=== PATIENT | female | born 1995 | race Caucasian/White ===

== ENCOUNTER 2017-08-31 08:00 | Outpatient (CLI) | payer BC | END 2017-08-31 08:01 | LOC: LAB.R 08:00 | PROVIDERS: ATTEND Registered Nurse | DX: O09.01 Supervision of pregnancy with history of infertility, first trimester (principal) | CPT/HCPCS: 87086 ==

== ENCOUNTER 2017-09-03 08:00 | Outpatient (CLI) | payer BC | END 2017-09-03 08:01 | disposition home or self-care (01) | LOC: LAB.N 08:00 | PROVIDERS: ATTEND Registered Nurse | DX: O09.01 Supervision of pregnancy with history of infertility, first trimester (principal) | CPT/HCPCS: 36415; 81025; 84702 ==

== ENCOUNTER 2018-09-14 09:07 | Outpatient (CLI) | payer BC ==
--- NOTE | 2018-09-15 18:13 | Ultrasound Report ---
Reason: TEST POSITIVE Procedure Date: 09/14/2018 Accession Number: [id number] / [id number] Procedure: US - OB First Trimester CPT Code: FULL RESULT: EXAM: FIRST TRIMESTER OBSTETRIC ULTRASOUND (Less than 11 weeks) EXAM DATE: 09/14/2018 10:00 AM. CLINICAL HISTORY: Positive test. LMP: 07/29/2018. COMPARISONS: None. TECHNIQUE: Transabdominal and transvaginal ultrasound examination with static image and cine loop documentation. CLINICAL DATES: EGA 6 weeks 5 days with HALEIGH 05/05/2019 based on LMP 07/29/2018. ASSESSMENT: Gestational Sac: Single intrauterine. Mean gestational sac diameter: 17 mm = 6 weeks 0 days. Embryo: Not seen. Cardiac activity: Not seen. Yolk sac: 3 mm. Amniotic fluid: Not accurately assessed at this gestational age. Early placenta: Not visible at this gestational age. Other: No perigestational fluid collection demonstrated. MATERNAL STRUCTURES: Uterus: Anteverted. Globular, heterogeneous area in the anterior fundal region measuring approximately 4 x 3 x 2 cm, possibly representing ill-defined fibroid versus focal adenomyosis. Cervix: Closed. Small nabothian cysts noted. Right Ovary/Adnexa: The ovary measures 2.9 x 1.8 x 2.5 cm, volume 6.7 cc. Contains normal follicles and a possible corpus luteum cyst measuring 0.8 cm. Left Ovary/Adnexa: The ovary measures 3.8 x 1.6 x 3.3 cm, volume 10.5 cc. Contains normal follicles. Free Fluid: None. Other: None. IMPRESSION: of uncertain viability. Intrauterine gestational sac containing a yolk sac with size corresponding to gestational age 6 weeks 0 days. No pole or cardiac activity is seen at this time. Recommend follow-up ultrasound in 7-10 days to assess viability. RADIA ADDENDUM: 09/15/18 19:12 Additional finding of small volume anechoic/simple free fluid in the posterior cul-de-sac.
== END 2018-09-14 09:08 | disposition home or self-care (01) ==
LOC: DI 09:07
PROVIDERS: ATTEND Nurse Practitioner Obstetrics & Gynecology
DX: Z32.01 Encounter for pregnancy test, result positive (principal)
CPT/HCPCS: 76801

== ENCOUNTER 2018-09-28 08:07 | Outpatient (CLI) | payer BC ==
--- NOTE | 2018-09-29 12:57 | Ultrasound Report ---
Reason: UNCERTAIN VIABILITY OF Procedure Date: 09/28/2018 Accession Number: [id number] / [id number] Procedure: US - OB First Trimester CPT Code: FULL RESULT: EXAM: FIRST TRIMESTER OBSTETRIC ULTRASOUND (Less than 11 weeks) EXAM DATE: 09/28/2018 09:20 AM. CLINICAL HISTORY: Uncertain viability of . LMP: 07/29/2018. COMPARISONS: None. TECHNIQUE: Transabdominal and transvaginal ultrasound examination with static image documentation. CLINICAL DATES: EGA 8 weeks 5 days with HALEIGH 05/05/2019 based on LMP. ASSESSMENT: Gestational Sac: Single intrauterine. Embryo: CRL (crown-rump length) 11.9 mm = 7 weeks 3 days. Cardiac activity: 144 beats per minute. Yolk sac: 4 mm. Amniotic fluid: Not accurately assessed at this gestational age. Early placenta: Not visible at this gestational age. Other: 2 perigestational hemorrhages are noted. Anteriorly, the perigestational image measures 1.8 x 1.2 x 0.7 cm. Posteriorly, the collection measures 2.2 x 0.4 x 0.7 cm. MATERNAL STRUCTURES: Uterus: Anteverted. Unremarkable. Cervix: Closed. Right Ovary/Adnexa: The ovary measures 2.9 x 1.1 x 2.3 cm, volume 3.8 cc. Unremarkable. Left Ovary/Adnexa: The ovary measures 3.8 x 2.1 x 2.6 cm, volume 16.8 cc. Hypoechoic. 1.8 x 1.1 x 1.6 cm left ovarian cyst. Free Fluid: None. Other: None. IMPRESSION: 1. Single viable intrauterine at EGA 7 weeks 3 days with HALEIGH 05/14/2019 based on crown-rump length, which is discordant with clinical dates. 2. Assigned dating is HALEIGH 05/14/2019 based on current ultrasound. 3. Small perigestational hemorrhages as above. 4. 1.8 cm hypoechoic left ovarian cyst. Otherwise, both ovaries and adnexa are normal. RADIA
== END 2018-09-28 08:08 | disposition home or self-care (01) ==
LOC: DI 08:07
PROVIDERS: ATTEND Nurse Practitioner Obstetrics & Gynecology
DX: O34.81 Maternal care for other abnormalities of pelvic organs, first trimester (principal); N83.202 Unspecified ovarian cyst, left side; Z3A.01 Less than 8 weeks gestation of pregnancy
CPT/HCPCS: 76801

== ENCOUNTER 2018-10-08 08:00 | Outpatient (CLI) | payer BC ==
[2018-10-08 15:03] LABS: MUDS CUTOFF CONCENTRATIONS CUTOFF CONC BELOW:
[2018-10-08 16:18] LABS: AMPHETAMINE SCREEN,URINE NEGATIVE (NEGATIVE); BENZODIAZEPINES SCREEN, URINE NEGATIVE (NEGATIVE); COCAINE SCREEN URINE NEGATIVE (NEGATIVE); METHADONE SCREEN, URINE NEGATIVE (NEGATIVE); METHAMPHETAMINES SCREEN, URINE NEGATIVE (NEGATIVE); OPIATE SCREEN, URINE NEGATIVE (NEGATIVE); OXYCODONE SCREEN, URINE NEGATIVE (NEGATIVE); PROPOXYPHENE SCREEN, URINE NEGATIVE (NEGATIVE); TRICYCLIC ANTIDEPRESSANT,URINE NEGATIVE (NEGATIVE)
== END 2018-10-08 23:59 | disposition home or self-care (01) ==
LOC: LAB.R 08:00
PROVIDERS: ATTEND Nurse Practitioner Obstetrics & Gynecology
DX: Z11.3 Encounter for screening for infections with a predominantly sexual mode of transmission (principal)
CPT/HCPCS: 80306; 87491; 87591

== ENCOUNTER 2018-10-08 10:20 | Outpatient (CLI) | payer BC ==
[2018-10-08 11:00] LABS: BASOPHILS # (AUTO) 0.1 10^3/uL (0.0-0.1); BASOPHILS % (AUTO) 1.4 %; EOSINOPHILS % (AUTO) 0.6 %; HGB - HEMOGLOBIN 13.4 g/dL (12.0-16.0); LYMPHOCYTES # (AUTO) 1.3 10^3/uL (1.5-3.5); LYMPHOCYTES % (AUTO) 17.3 %; MEAN CORPUSCULAR HGB CONC 35.2 g/dL (32.0-36.0); MEAN CORPUSCULAR VOLUME 82.3 fL (81.0-99.0); MEAN PLATELET VOLUME 9.8 fL (7.9-10.8); MONOCYTES # (AUTO) 0.4 10^3/uL (0.0-1.0); MONOCYTES % (AUTO) 5.8 %; NEUTROPHILS # (AUTO) 5.7 10^3/uL (1.5-6.6); NEUTROPHILS % (AUTO) 74.9 %; PLT - PLATELET COUNT 221 10^3/uL (130-450); RED BLOOD COUNT 4.61 10^6/uL (4.20-5.40); RED CELL DISTRIBUTION WIDTH 14.7 % (12.0-15.0); WHITE BLOOD COUNT 7.6 x10^3/uL (4.8-10.8)
[2018-10-08 11:16] LABS: BILIRUBIN,URINE NEGATIVE (NEGATIVE); GLUCOSE, URINE (UA) NEGATIVE (NEGATIVE); KETONES,URINE (UA) NEGATIVE (NEGATIVE); LEUKOCYTE ESTERASE, URINE NEGATIVE (NEGATIVE); NITRITE,URINE NEGATIVE (NEGATIVE); OCCULT BLOOD,URINE NEGATIVE (NEGATIVE); PROTEIN,URINE NEGATIVE (NEGATIVE); UROBILINOGEN,URINE 0.2 (NORMAL) E.U./dL (NORMAL)
[2018-10-08 11:18] LABS: CLARITY,URINE CLEAR (CLEAR)
[2018-10-08 11:45] LABS: BACTERIA,URINE Few /HPF (None Seen); RBC,URINE 0-5 /HPF (0-5); SQUAMOUS EPITHELIAL CELL,UR MOD Squamous (<= Few)
[2018-10-09 13:26] LABS: HEPATITIS B SURFACE ANTIGEN NON-REACTIVE (NON-REACTIVE); HEPATITIS C ANTIBODY NON-REACTIVE (NON-REACTIVE)
[2018-10-09 14:37] LABS: HIV AG/AB 4TH GEN NON-REACTIVE (NON-REACTIVE)
== END 2018-10-08 10:21 | disposition home or self-care (01) ==
LOC: LAB 10:20
PROVIDERS: ATTEND Nurse Practitioner Obstetrics & Gynecology
DX: Z36.9 Encounter for antenatal screening, unspecified (principal); Z11.3 Encounter for screening for infections with a predominantly sexual mode of transmission
CPT/HCPCS: 36415; 80306; 81001; 81599; 85025; 86592; 86762; 86803; 86850; 86900; 86901; 87086; 87340; 87389; 87491; 87591

== ENCOUNTER 2018-11-13 15:56 | Emergency (ER) | payer BC ==
[2018-11-13 16:34] LABS: BILIRUBIN,URINE NEGATIVE (NEGATIVE); GLUCOSE, URINE (UA) NEGATIVE (NEGATIVE); KETONES,URINE (UA) NEGATIVE (NEGATIVE); LEUKOCYTE ESTERASE, URINE TRACE (NEGATIVE); NITRITE,URINE NEGATIVE (NEGATIVE); OCCULT BLOOD,URINE LARGE (NEGATIVE); PH,URINE 6.5 PH (5.0-7.5); PROTEIN,URINE NEGATIVE (NEGATIVE); UROBILINOGEN,URINE 0.2 (NORMAL) E.U./dL (NORMAL)
[2018-11-13 16:37] LABS: BASOPHILS % (AUTO) 0.5 %; EOSINOPHILS % (AUTO) 0.5 %; HGB - HEMOGLOBIN 13.4 g/dL (12.0-16.0); LYMPHOCYTES # (AUTO) 1.5 10^3/uL (1.5-3.5); LYMPHOCYTES % (AUTO) 17.6 %; MEAN CORPUSCULAR HEMOGLOBIN 28.9 pg (27.0-31.0); MEAN CORPUSCULAR HGB CONC 34.6 g/dL (32.0-36.0); MEAN CORPUSCULAR VOLUME 83.6 fL (81.0-99.0); MEAN PLATELET VOLUME 9.6 fL (7.9-10.8); MONOCYTES # (AUTO) 0.5 10^3/uL (0.0-1.0); MONOCYTES % (AUTO) 6.1 %; NEUTROPHILS # (AUTO) 6.3 10^3/uL (1.5-6.6); NEUTROPHILS % (AUTO) 75.3 %; PLT - PLATELET COUNT 244 10^3/uL (130-450); RED BLOOD COUNT 4.64 10^6/uL (4.20-5.40); WHITE BLOOD COUNT 8.3 x10^3/uL (4.8-10.8)
[2018-11-13 16:46] LABS: BACTERIA,URINE None Seen /HPF (None Seen); CLARITY,URINE HAZY (CLEAR); SQUAMOUS EPITHELIAL CELL,UR RARE Squamous (<= Few)
[2018-11-13 16:49] LABS: ALBUMIN 3.9 g/dL (3.2-5.5); ALBUMIN/GLOBULIN RATIO 1.1 (1.0-2.2); BILIRUBIN,TOTAL 0.4 mg/dL (0.2-1.0); CALCIUM 9.2 mg/dL (8.5-10.3); CREATININE 0.5 mg/dL (0.4-1.0); TOTAL PROTEIN 7.4 g/dL (6.7-8.2)
--- NOTE | 2018-11-13 17:53 | ED Physician Documentation ---
PD HPI FEMALE - Stated complaint Stated Complaint: FEMALE 14 WEEKS - Chief complaint Chief Complaint: Abd Pain - History obtained from History obtained from: Patient - History of Present Illness Timing - onset: How many hours ago (2) Timing - duration: Hours (2) Timing - details: Abrupt onset Pain level max: 0 Pain level max: 0 Associated symptoms: Vaginal bleeding. No: Fever, Chest/shoulder pain, Abdominal pain, Back pain, Pelvic pain, Vaginal pain, Vaginal discharge, Genital sore/lesion, Dysuria, Urinary frequency, Hematuria OB-FIELD AIDE History: G (1), P (0) Similar symptoms before: Has not had sx before Recently seen: Not recently seen Review of Systems Constitutional: denies: Fever, Chills Nose: denies: Rhinorrhea / runny nose, Congestion Throat: denies: Sore throat Cardiac: denies: Chest pain / pressure Respiratory: denies: Cough GI: denies: Nausea, Vomiting, Diarrhea : denies: Dysuria, Frequency, Hesitancy Skin: denies: Rash Musculoskeletal: denies: Neck pain, Back pain Neurologic: denies: Headache PD PAST MEDICAL HISTORY - Past Medical History Past Medical History: No - Past Surgical History Past Surgical History: No - Present Medications Home Medications: Ambulatory Orders Medication Instructions Recorded Confirmed Pnv No.95/Ferrous Fum/Folic AC 1 each PO DAILY 11/13/18 11/13/18 [ Caplet] - Allergies Allergies/Adverse Reactions: Allergies Allergy/AdvReac Type Severity Reaction Status Date / Time Penicillins Allergy Rash Verified 11/13/18 16:15 - Living Situation Living Situation: reports: With family Living Arrangement: reports: At home - Social History Does the pt smoke?: No Does the pt have substance abuse?: No - Family History Family history: reports: Non contributory PD ED PE NORMAL - Vitals Vital signs reviewed: Yes - General General: Alert and oriented X 3, No acute distress - HEENT HEENT: Moist mucous membranes - Neck Neck: Supple, no meningeal sign - Cardiac Cardiac: RRR - Respiratory Respiratory: No respiratory distress, Clear bilaterally - Abdomen Abdomen: Soft, Non tender, Non distended - Back Back: No CVA TTP - Derm Derm: Warm and dry - Extremities Extremities: No edema - Neuro Neuro: Alert and oriented X 3 - Psych Psych: Normal mood, Normal affect Results - Vitals Vitals: Vital Signs - 24 hr 11/13/18 11/13/18 16:12 18:09 Temperature 36.8 C Heart Rate 89 81 Respiratory 20 18 Rate Blood Pressure 119/79 115/78 O2 Saturation 100 100 Oxygen O2 Source Room air - Labs Labs: Laboratory Tests 11/13/18 11/13/18 11/13/18 16:20 16:27 16:27 WBC 8.3 RBC 4.64 Hgb 13.4 Hct 38.8 MCV 83.6 MCH 28.9 MCHC 34.6 RDW 14.0 Plt Count 244 MPV 9.6 Neut # (Auto) 6.3 Lymph # (Auto) 1.5 [place] # (Auto) 0.5 Eos # (Auto) 0.0 Baso # (Auto) 0.0 Absolute Nucleated RBC 0.00 Nucleated RBC % 0.0 Sodium 134 L Potassium 3.7 Chloride 101 Carbon Dioxide 22 Anion Gap 11.0 BUN 9 Creatinine 0.5 Estimated GFR (MDRD) 150 Glucose 91 Calcium 9.2 Total Bilirubin 0.4 AST 24 ALT 16 Alkaline Phosphatase 54 Total Protein 7.4 Albumin 3.9 Globulin 3.5 Albumin/Globulin Ratio 1.1 Lipase 39 HCG, Quant Urine Color YELLOW Urine Clarity HAZY Urine pH 6.5 Ur Specific [place] 1.015 Urine Protein NEGATIVE Urine Glucose (UA) NEGATIVE Urine Ketones NEGATIVE Urine Occult Blood LARGE H Urine Nitrite NEGATIVE Urine Bilirubin NEGATIVE Urine Urobilinogen 0.2 (NORMAL) Ur Leukocyte Esterase TRACE H Urine RBC 6-10 H Urine WBC 4-5 Ur Squamous Epith Cells RARE Squamous Urine Bacteria None Seen Ur Microscopic Review INDICATED Urine Culture Comments INDICATED 11/13/18 16:27 WBC RBC Hgb Hct MCV MCH MCHC RDW Plt Count MPV Neut # (Auto) Lymph # (Auto) [place] # (Auto) Eos # (Auto) Baso # (Auto) Absolute Nucleated RBC Nucleated RBC % Sodium Potassium Chloride Carbon Dioxide Anion Gap BUN Creatinine Estimated GFR (MDRD) Glucose Calcium Total Bilirubin AST ALT Alkaline Phosphatase Total Protein Albumin Globulin Albumin/Globulin Ratio Lipase HCG, Quant 90801.00 Urine Color Urine Clarity Urine pH Ur Specific [place] Urine Protein Urine Glucose (UA) Urine Ketones Urine Occult Blood Urine Nitrite Urine Bilirubin Urine Urobilinogen Ur Leukocyte Esterase Urine RBC Urine WBC Ur Squamous Epith Cells Urine Bacteria Ur Microscopic Review Urine Culture Comments - Rads (name of study) OB 14-week plus ultrasound Radiology: Prelim report reviewed, EMP read contemporaneously, See rad report (Gonzalez live intrauterine with gestational age 14 weeks 2 days based on today's exam. No ultrasound abnormalities identified to explain bleeding. 3. Normal early second trimester anatomy. No anatomic abnormalities are seen at this time. ) PD MEDICAL DECISION MAKING - ED course Complexity details: reviewed results, re-evaluated patient, considered differential, d/w patient, d/w family ED course: 23-year-old female with vaginal bleeding. She is . Blood type is O+. She states that the bleeding has nearly resolved now. No acute lab abnormalities. No acute findings on ultrasound. We will follow-up with OB for further care. Patient counseled regarding signs and symptoms for which I believe and urgent re-evaluation would be necessary. Patient with good understanding of and agreement to plan and is comfortable going home at this time This document was made in part using voice recognition software. While efforts are made to proofread this document, sound alike and grammatical errors may occur. Departure - Departure Disposition: 01 Home, Self Care Clinical Impression: Threatened affecting intrauterine Condition: Good Instructions: ED Miscarriage Poss Follow-Up: Saroj Shrestha MD [Primary Care Provider] - Within 1 week Comments: Follow-up with your OB within the next 3 to 7 days for repeat evaluation. Return if you worsen. Your ultrasound does not show any acute abnormalities tonight. Discharge Date/Time: 11/13/18 18:29
[2018-11-13 18:13] VITALS: BP 115/78
--- NOTE | 2018-11-13 18:44 | Ultrasound Report ---
Reason: 14 weeks ega, vb Procedure Date: 11/13/2018 Accession Number: [id number] / [id number] Procedure: US - OB 14+ Weeks CPT Code: FULL RESULT: EXAM: LIMITED OBSTETRICAL ULTRASOUND EARLY SECOND TRIMESTER EXAM DATE: 11/13/2018 04:46 PM. CLINICAL HISTORY: Vaginal bleeding since yesterday. COMPARISON: OB FIRST TRIMESTER 09/28/2018 8:27 AM. TECHNIQUE: Real-time sonographic evaluation of the fetus performed by the theatrical scenic designer. Multiple customer relations representative static images were saved for review. DATING: Established EGA 15 weeks 2 days with HALEIGH 05/05/2019 based on LMP of 07/29/2018. EGA 14 weeks 0 days with HALEIGH 05/14/2019 based on initial ultrasound. EGA 14 weeks 2 days with HALEIGH 05/12/2019 based on the current ultrasound. GENERAL EVALUATION Gonzalez . Cardiac activity: 157 bpm. movement: Visualized. Presentation: Breech. Placenta: Anterior position. No evidence for previa. Amniotic fluid: Subjectively normal. MVP 3.9 cm. BIOMETRY Bi-Parietal Diameter (BPD): 2.71 cm, 14 weeks 5 days Head Circumference (HC): 9.93 cm, 14 weeks 4 days Abdominal Circumference (AC): 7.79 cm, 14 weeks 1 day Femur Length (FL): 1.33 cm, 13 weeks 6 days Estimated Weight: 91 g. ANATOMY Within the limits of early second trimester ultrasound, no anatomic abnormality is detected. The profile/nasal bone, visualized intracranial structures, anterior abdominal wall, cord insert region, stomach, and bladder are visualized and appear normal for gestational age. Cardiac situs is normal. Both upper and lower extremities are visualized. MATERNAL STRUCTURES Uterus: Unremarkable. Cervix: Long and closed. Right ovary/adnexa: Unremarkable. Left ovary/adnexa: Unremarkable. Free fluid: None. IMPRESSION: 1. Gonzalez live intrauterine with gestational age 14 weeks 2 days based on today's exam. 2. No ultrasound abnormalities identified to explain bleeding. 3. Normal early second trimester anatomy. No anatomic abnormalities are seen at this time. Note: Detailed anatomic survey at 18-22 weeks is recommended for all fetuses evaluated prior to 18 weeks, as some structural abnormalities may be inapparent at earlier gestational ages. RADIA
== END 2018-11-13 18:29 | disposition home or self-care (01) ==
LOC: ED 15:56
DX: O20.0 Threatened abortion (principal); Z3A.14 14 weeks gestation of pregnancy
CPT/HCPCS: 36415; 76805; 80053; 81001; 81003; 83690; 84702; 85025; 86900; 86901; 87086; 99283

== ENCOUNTER 2018-11-19 09:02 | Outpatient (CLI) | payer BC | END 2018-11-19 09:03 | disposition home or self-care (01) | LOC: LAB 09:02 | PROVIDERS: ATTEND Registered Nurse | DX: Z34.90 Encounter for supervision of normal pregnancy, unspecified, unspecified trimester (principal); Z36.9 Encounter for antenatal screening, unspecified | CPT/HCPCS: 36415; 81599 ==

== ENCOUNTER 2018-12-23 07:16 | Outpatient (CLI) | payer BC ==
--- NOTE | 2018-12-23 09:43 | Ultrasound Report ---
Reason: SUPERVISION OF NORMAL Procedure Date: 12/23/2018 Accession Number: [id number] / [id number] Procedure: US - OB Detailed Eval CPT Code: FULL RESULT: EXAM: COMPLETE OBSTETRICAL ULTRASOUND EXAM DATE: 12/23/2018 08:20 AM. CLINICAL HISTORY: anatomic survey. COMPARISON: None. TECHNIQUE: Real-time sonographic evaluation of the fetus performed by the belt lacer. Multiple risk control field representative static images were saved for review. Additional transvaginal imaging to more accurately evaluate cervical length/placental position/etc. DATING: Established EGA unknown with HALEIGH unknown based on source of assigned dating. EGA 19 weeks 5 days with HALEIGH 05/14/2019 based on current ultrasound. GENERAL EVALUATION Gonzalez . Cardiac activity: 148 bpm. movement: Visualized. Presentation: Various Placenta: Anterior position. No evidence for previa. Umbilical cord: 3 vessel cord. Central placental cord origin. Amniotic fluid: Subjectively normal. NOMAN 14.4 cm. BIOMETRY Bi-Parietal Diameter (BPD): 4.7 cm, 20 weeks 2 days Head Circumference (HC): 17.3 cm, 19 weeks 6 days Abdominal Circumference (AC): 14.7 cm, 20 weeks 0 days Femur Length (FL): 3.0 cm, 19 weeks 3 days Estimated Weight: 310 g, 47 percentile for 19 weeks 5 days. ANATOMY The intracranial structures, profile, face/nose/lips, spine, 4 chamber heart and outflow tracts, stomach, abdominal wall and cord insertion, diaphragm, kidneys, bladder, and extremities were visualized and demonstrate no abnormality. MATERNAL STRUCTURES Uterus: Unremarkable. Cervix: Long and closed. Transabdominal length 4.1 cm. Right ovary/adnexa: Unremarkable. Left ovary/adnexa: Unremarkable. Free fluid: None. IMPRESSION: 1. Gonzalez live intrauterine with gestational age 19 weeks 5 days based on ultrasound. 2. Estimated weight is within expected limits for assigned dating. 3. Normal anatomic survey. No anatomic abnormalities are detected at this time. RADIA
== END 2018-12-23 07:17 | disposition home or self-care (01) ==
LOC: DI 07:16
PROVIDERS: ATTEND Registered Nurse
DX: Z34.90 Encounter for supervision of normal pregnancy, unspecified, unspecified trimester (principal)
CPT/HCPCS: 76811

== ENCOUNTER 2019-02-07 16:19 | Outpatient (CLI) | payer BC | END 2019-02-07 16:20 | disposition critical access hospital (66) | LOC: EMS 16:19 | PROVIDERS: ATTEND Surgery | DX: R45.851 Suicidal ideations (principal) | CPT/HCPCS: A0425; A0429 ==

== ENCOUNTER 2019-02-10 08:00 | Outpatient (CLI) | payer BC ==
[2019-02-10 20:43] LABS: CANDIDA GROUP DNA NEGATIVE (NEGATIVE); CANDIDA KRUSEI DNA NEGATIVE (NEGATIVE); TRICHOMONAS VAGINALIS DNA NEGATIVE (NEGATIVE)
== END 2019-02-10 08:01 | disposition home or self-care (01) ==
LOC: LAB.R 08:00
PROVIDERS: ATTEND Obstetrics & Gynecology
DX: N89.8 Other specified noninflammatory disorders of vagina (principal)
CPT/HCPCS: 87661; 87801

== ENCOUNTER 2019-03-10 11:10 | Outpatient (CLI) | payer BC ==
[2019-03-10 12:39] LABS: HGB - HEMOGLOBIN 13.1 g/dL (12.0-16.0); MEAN CORPUSCULAR HEMOGLOBIN 29.9 pg (27.0-31.0); MEAN CORPUSCULAR HGB CONC 35.3 g/dL (32.0-36.0); MEAN CORPUSCULAR VOLUME 84.7 fL (81.0-99.0); MEAN PLATELET VOLUME 11.2 fL (7.9-10.8); RED BLOOD COUNT 4.38 10^6/uL (4.20-5.40); RED CELL DISTRIBUTION WIDTH 14.5 % (12.0-15.0); WHITE BLOOD COUNT 7.3 x10^3/uL (4.8-10.8)
== END 2019-03-10 11:11 | disposition home or self-care (01) ==
LOC: LAB 11:10
PROVIDERS: ATTEND Obstetrics & Gynecology
DX: Z36.89 Encounter for other specified antenatal screening (principal)
CPT/HCPCS: 36415; 82950; 85027; 86850

== ENCOUNTER 2019-04-20 00:08 | Inpatient (IN) | payer BC ==
[2019-04-20] MEDS ORDERED: ceFAZolin 2 GM in SODIUM CHLORIDE 0.9% 100ML 100 ML IV ONE (00:45)
[2019-04-20] MEDS ORDERED: SODIUM CHLORIDE FLUSH 0.9% 10 ML SYRINGE IVP PRN (00:45)
[2019-04-20] MEDS ORDERED: LACTATED RINGERS 1,000 ML IV ONE (00:56)
[2019-04-20] MEDS ORDERED: LACTATED RINGERS 1,000 ML IV SCH ×2 (01:00→14:00)
[2019-04-20] MEDS ORDERED: SODIUM CHLORIDE FLUSH 0.9% 10 ML SYRINGE ONE (01:02)
[2019-04-20 01:15] LABS: BASOPHILS % (AUTO) 0.3 %; EOSINOPHILS % (AUTO) 0.3 %; HGB - HEMOGLOBIN 12.7 g/dL (12.0-16.0); LYMPHOCYTES # (AUTO) 1.6 10^3/uL (1.5-3.5); MEAN CORPUSCULAR HGB CONC 34.8 g/dL (32.0-36.0); MEAN CORPUSCULAR VOLUME 83.3 fL (81.0-99.0); MEAN PLATELET VOLUME 12.1 fL (7.9-10.8); MONOCYTES # (AUTO) 0.7 10^3/uL (0.0-1.0); MONOCYTES % (AUTO) 8.2 %; NEUTROPHILS # (AUTO) 6.2 10^3/uL (1.5-6.6); NEUTROPHILS % (AUTO) 71.6 %; PLT - PLATELET COUNT 196 10^3/uL (130-450); RED BLOOD COUNT 4.38 10^6/uL (4.20-5.40); RED CELL DISTRIBUTION WIDTH 15.1 % (12.0-15.0); WHITE BLOOD COUNT 8.6 x10^3/uL (4.8-10.8)
[2019-04-20] MEDS: SODIUM CHLORIDE FLUSH 0.9% 10 ML SYRINGE IVP SCH (01:17)
[2019-04-20] MEDS ORDERED: ROPIVACAINE 0.2% 200 MG/100 ML BAG EP ONE ×2 (01:27→09:47)
--- NOTE | 2019-04-20 01:46 | HISTORY & PHYSICAL EXAMINATION ---
Admit History - Visit Reason Visit Reason: Membranes rupture - : 1 Parity: 0 Care: positive: [facility] Risk/History: positive: Premature rupture membrane Complications This : positive: None, Other (GBS unknown) Smoking Status: Never smoker - Mother's Labs Mother's Blood Type: positive: O Mother's RH: positive: Positive GBS: positive: Other Rubella Status: positive: Immune - Other Maternal History Other Maternal History: Patient is a 24-year-old G2, P0 at 36 weeks 4days estimated gestational age with HALEIGH 05/14/19 admitted with PPROM. Patient reports passing large gush of fluid at home. Endorses painful contractions that started once admitted. No Vaginal bleeding. Endorses movements. has been complicated by depression with episodes of SI. Otherwise without complication. GBS is unknown. Denies HSV. Admitted with elevated blood pressures. To diastolic blood pressures have been in the severe range, but have not been more than 15 minutes apart. No headache/vision change/right upper quadrant pain. Desires epidural WILMA. Meds/Allgy - Home Medications Home Medications: Ambulatory Orders Medication Instructions Recorded Confirmed Pnv No.95/Ferrous Fum/Folic AC 1 each PO DAILY 11/13/18 11/13/18 [ Caplet] QUEtiapine [SEROquel] mg ORAL DAILY 02/08/19 - Allergies Allergies/Adverse Reactions: Allergies Allergy/AdvReac Type Severity Reaction Status Date / Time Penicillins Allergy Rash Verified 11/13/18 16:15 Review of Systems - Other Findings Other Findings: As per HPI, otherwise remaining systems are negative. Physical - Abdominal Exam Vital Signs: 136/99 76 Contraction Frequency (min/apart): Q1-2 min Contraction Intensity: positive: Moderate to strong - Monitoring Heart Rate Baseline: 135 Strip Review: positive: Category I - Presentation Presentation: positive: Vertex - Vaginal Exam Membranes: positive: Membranes ruptured Dilation (in cm): 6.5 Effacement (%): 100 Station: positive: 1 - Speculum Exam Speculum Exam Performed: positive: No - Other Notes Labor Progress Note/Additional Text: Patient is grossly ruptured with active passage of fluid. SVE was 6/complete/+1 at admission. Patient reported sensation of fecal urgency as well as severe pain. Repeat check within 1 hour was 6-7/ complete/+1. Plan for Labor - Plan For Labor I expect patient to be DC'd or transferred within 96 hours.: Yes Plan for Labor: 24-year-old G2, P0 at 36+4 weeks estimated gestational age here with PPROM. Labor/PPROM: -Frequent contractions. Expectant management at present -Pitocin for augmentation as indicated -Anticipate FWB: -GBS unknown. Cefazolin as per GBS prophylaxis protocol for pcn allergic patients -Category 1 tracing. See EFM. -Vertex -Growth has been appropriate -Pediatrics aware. Will have RT at delivery. -Betamethasone 12 mg IM x1 for anticipated late delivery. PAIN: -Epidural as desired -Nitrous oxide until epidural can be placed Elevated blood pressures: -Denies symptoms of PIH -PIH labs pending. Platelets 196 -Patient about to undergo epidural placement. If elevated blood pressures persist after epidural, will start IV hydralazine and magnesium In patient care
[2019-04-20] MEDS ORDERED: BETAMETHASONE 30 MG/5 ML VIAL IM ONE (01:47)
[2019-04-20] MEDS ORDERED: fentaNYL 100 MCG/2 ML VIAL ONE (01:52)
[2019-04-20 01:57] LABS: ALBUMIN 3.3 g/dL (3.2-5.5); BILIRUBIN,DIRECT 0.2 mg/dL (0.1-0.5); BILIRUBIN,TOTAL 0.9 mg/dL (0.2-1.0); CREATININE 0.7 mg/dL (0.4-1.0); TOTAL PROTEIN 7.1 g/dL (6.7-8.2)
--- NOTE | 2019-04-20 02:46 | ANESTHESIA ---
Pre-Anesthesia VS, & Labs - Diagnosis term - Procedure labor epidural Height 5 ft Body Mass Index 27.7 5-2, 151# - Is Patient ?: Yes - Lab Results Current Lab Results: Laboratory Tests 04/20/19 01:05: Creatinine 0.7, Estimated GFR (MDRD) 101, Total Bilirubin 0.9, Direct Bilirubin 0.2, AST 21, ALT 13, Alkaline Phosphatase 206 H, Total Protein 7.1, Albumin 3.3, Globulin 3.8 04/20/19 01:05: WBC 8.6, RBC 4.38, Hgb 12.7, Hct 36.5 L, MCV 83.3, MCH 29.0, MCHC 34.8, RDW 15.1 H, Plt Count 196, MPV 12.1 H, Neut # (Auto) 6.2, Lymph # (Auto) 1.6, [place] # (Auto) 0.7, Eos # (Auto) 0.0, Baso # (Auto) 0.0, Absolute Nucleated RBC 0.00, Nucleated RBC % 0.0 Fish Bones: 04/20/19 01:05 04/20/19 01:05 Home Medications and Allergies Active Medications Cefazolin Sodium 1 gm/ Sodium (Chloride) 100 mls @ 200 mls/hr IV Q8H [facility] Lactated Ringer's (Lr) 1,000 mls @ 150 mls/hr IV .[id number] [facility] Last Admin: 04/20/19 01:17 Dose: 150 mls/hr Sodium Chloride (Normal Saline Flush 0.9%) 10 ml IVP PRN PRN PRN Reason: NEEDED PER PROVIDER ORDERS Last Admin: 04/20/19 01:17 Dose: 10 ml Sodium Chloride (Normal Saline Flush 0.9%) 10 ml IVP 0100,0900,1700 [facility] Last Admin: 04/20/19 01:17 Dose: 10 ml Pnv No.95/Ferrous Fum/Folic AC [ Caplet] 1 each PO DAILY 11/13/18 QUEtiapine [SEROquel] mg ORAL DAILY 02/08/19 Allergies/Adverse Reactions: Allergies Allergy/AdvReac Type Severity Reaction Status Date / Time Penicillins Allergy Rash Verified 11/13/18 16:15 Anes History & Medical History - Anesthetic History Anesthesia Complications: reports: No previous complications Family history of Anesthesia Complications: Denies Family history of Malignant Hyperthermia: Denies - Medical History Cardiovascular: reports: None Pulmonary: reports: None Gastrointestinal: reports: GERD (hypertensive prior to epidural placement) Smoking Status: Never smoker - Obstetrical History : 1 Parity: 0 Events: positive: Premature rupture membrane Complications: positive: None Exam General: Alert Dental: WNL Mouth Openin Fingerbreadth Mallampati classification: II Respiratory: Lungs clear Cardiovascular: Regular rate, Normal S1, Normal S2, No murmurs Mental/Cognitive Status: Alert/Oriented X3, Normal for patient Cognitive Status: Within normal limits Plan Anesthesia Type: Epidural Consent for Procedure(s) Verified and Reviewed: Yes Code Status: Attempt Resuscitation ASA classification: 2-Mild systemic disease Is this case an emergency?: No
[2019-04-20] MEDS ORDERED: OXYTOCIN/DEXTROSE 5 % 30 UNIT/500 ML BAG IV ONE (03:59)
[2019-04-20 04:03] LABS: CREATININE,URINE 23.9 mg/dL
[2019-04-20 04:14] LABS: TOTAL PROTEIN,URINE TIMED < 6 mg/dL
[2019-04-20] MEDS: OXYTOCIN/DEXTROSE 5 % 30 UNIT/500 ML BAG IV SCH ×2 (05:50→13:05)
[2019-04-20] MEDS ORDERED: ceFAZolin 1 GM in SODIUM CHLORIDE 0.9% MINIBAG 100 ML IV SCH (09:00)
[2019-04-20] MEDS ORDERED: ONDANSETRON 4 MG/2 ML VIAL IVP PRN (09:44)
[2019-04-20] MEDS ORDERED: ROPIVACAINE 0.2% 200 MG/100 ML BAG EP PRN (09:44)
[2019-04-20] MEDS ORDERED: NALBUPHINE 10 MG/ML AMP IVP PRN (09:44)
[2019-04-20] MEDS ORDERED: diphenhydrAMINE INJ 50 MG/ML VIAL IVP PRN (09:44)
--- NOTE | 2019-04-20 10:07 | CONSULTATION NOTE ---
Consultation Report: Call to [phone] for air in epidural line. Lamoille volume not empty. Air in line identified. Epidural disconnected from patient and line flushed until air gone. Negative aspiration on epidural before reconnecting solution. Pt denies pain with contractions and is still able to feel pressure. VSS.
[2019-04-20] MEDS ORDERED: MINERAL OIL LIGHT 10 ML MC ONE (12:00)
[2019-04-20] MEDS ORDERED: miSOPROStol 200 MCG TABLET BC ONE (12:23)
[2019-04-20] MEDS ORDERED: HYDROCORTISONE 1% CREAM 28 GM TUBE PR PRN (13:01)
[2019-04-20] MEDS ORDERED: SIMETHICONE CHEW 80 MG TABLET PO PRN (13:01)
[2019-04-20] MEDS ORDERED: ONDANSETRON ODT 4 MG TABLET TL PRN (13:01)
--- NOTE | 2019-04-20 13:51 | DELIVERY NOTE ---
Delivery Note - Infant Delivery Method Infant Delivery Method: positive: Spontaneous vaginal delivery - Presentation Presentation: positive: Vertex - Nuchal Cord Nuchal Cord: positive: None - Amniotic Fluid Description Amniotic Fluid Description: positive: Clear, Other (terminal meconium) - Episiotomy Type Episiotomy Type: positive: Right mediolateral - Laceration Laceration: positive: 2nd degree - Suture Suture Type: positive: Vicryl Suture Size: positive: 3-0 - Delivery Outcome Delivery Outcome: positive: Livebirth - [place] sex: positive: Male - Cord Cord: positive: 3 vessels - Placenta Placenta: positive: Intact, Expressed - Estimated Blood Loss Estimated Blood Loss (in cc): 300 - Post Delivery Events Post Delivery Events: positive: Shoulder dystocia - Delivery Comments (Free Text/Narrative) Delivery Comments (Free Text/Narrative): STAGE I: Patient is a 24-year-old G2, P0 at 36 weeks 4days estimated gestational age with HALEIGH 05/14/19 admitted with PPROM. Patient reports passing large gush of fluid at home. Endorses painful contractions that started once admitted. Initial SVE was 6/complete/+1 She was started on cefazolin for unknown GBS status. Denies HSV. Administered betamethasone 12 mg IM x1 for anticipated late delivery. Received pitocin or augmentation, reaching a max dose of 8 mU/min. Epidural for pain management. Fetus was in OP position and was manually rotated to OA. There was a brief period of tachycardia lasting about 15 minutes that resolved with manual rotation of the fetus. Otherwise, category I tracing throughout Stage I. Complete dilation at 8:27 am. STAGE II: Pushed well for 3 hour and 40 minutes to deliver a viable male . Fetus crowned for extended period of time and risk of shoulder dystocia was recognized and reviewed with the team. Pediatrics and Respiratory therapy were notified and were on the labor deck on standby. Should dystocia sustained for 2 minutes and 10 seconds was relieved with a combination of McRobert's maneuver, attempt to deliver the posterior arm, Wood's screw maneuver, and maternal position change. Right shoulder was anterior and left shoulder was anterior. A small, right mediolateral episiotomy was performed to allow for better access to the posterior arm. Infant delivered at 12:08. Cord was cut x2 and he was handed off to the pediatric team for resuscitation. Blood gases were collected. Venous gases were 7.375/32.7/33.6/18.7/19.7/-5.4. Volume collected was insufficient for arterial gases. Apgars were 5/8. STAGE III: Placenta delivered at 12:18 with manual expression and gentle downward traction on the umbilical cord. It was examined and found to be intact. There was a large gush of blood after delivery. Uterus was mildly atonic. Bleeding and atony were relieved with pitocin, 600 mcg misoprostol BC, and bimanual massage. There was a small 2nd laceration as a result of the mediolateral episiotomy. It was repaired with 3-0 Vicryl in layers in the usual sterile fashion. ETA: GBS studies returned positive. Patient had been adequately treated cefazolin per prophylaxis protocol.
[2019-04-20] MEDS: ACETAMINOPHEN 500 MG TABLET PO SCH ×2 (14:11→21:40)
[2019-04-20] MEDS: IBUPROFEN 600 MG TABLET PO SCH ×2 (14:14→21:40)
[2019-04-20] MEDS: GENTAMICIN IV SCH (16:52)
[2019-04-20] MEDS: SODIUM CHLORIDE 0.9% IV SCH (16:52)
[2019-04-20] MEDS: CLINDAMYCIN 600 MG/50 ML 50 ML IV SCH (18:22)
[2019-04-20 18:57] LABS: TRICHOMONAS VAGINALIS DNA NEGATIVE (NEGATIVE)
[2019-04-20] MEDS: DOCUSATE SODIUM 100 MG CAPSULE PO PRN (21:40)
[2019-04-21] MEDS: CLINDAMYCIN 600 MG/50 ML 50 ML IV SCH ×3 (01:10→14:33)
[2019-04-21] MEDS: IBUPROFEN 600 MG TABLET PO SCH ×4 (04:39→20:15)
[2019-04-21] MEDS: ACETAMINOPHEN 500 MG TABLET PO SCH ×3 (06:07→22:26)
[2019-04-21] MEDS: SODIUM CHLORIDE FLUSH 0.9% 10 ML SYRINGE IVP SCH ×2 (08:07→14:34)
[2019-04-21] MEDS: DOCUSATE SODIUM 100 MG CAPSULE PO PRN ×2 (08:07→22:26)
[2019-04-21] MEDS ORDERED: PHENOL THROAT SPRAY 177 ML MM PRN (11:10)
[2019-04-21] MEDS ORDERED: oxyCODONE 5 MG TABLET PO PRN (11:11)
--- NOTE | 2019-04-21 11:16 | PROVIDER PROGRESS NOTE ---
Subjective - Prog Note Date Prog Note Date: 04/21/19 Prog Note Time: 11:10 - Subjective Pt reports feeling: Improved Subjective: Infant doing well. Pain not well managed on ibuprofen and tylenol. Patient did push for almost 4 hours and had a shoulder dystocia with maneuvering. Has a sore throat but has been afebrile since 1800 yesterday. Requests flu immunization. BF going well. Has been up and ambulating. Has voided and had a bowel movement. Objective - Vital Signs/Intake & Output Vital Signs: Vital Signs x48h Temp Pulse Resp BP Pulse Ox 04/21/19 08:00 98.2 F 80 18 95/54 L 100 04/21/19 04:38 98.5 F 83 16 106/67 100 Intake & Output: Intake & Output 04/18/19 04/19/19 04/20/19 04/21/19 23:59 23:59 23:59 23:59 Intake Total 2366.25 1600 Output Total 2000 Balance 365.25 1600 - Objective General Appearance: positive: No acute distress Respiratory: positive: No respiratory distress Cardiovascular: positive: Other (Reg rate) Abdomen: positive: Other (S&NT/ND. FF below umbi) Skin: positive: Color nml Extremities: positive: Non-tender, No pedal edema Neurologic/Psychiatric: positive: Oriented x3, Depressed mood/affect, Other (flat affect) - Lab Results Fish Bones: 04/20/19 01:05 04/20/19 01:05 Other Labs: Lab Results x24hrs 04/21/19 04/20/19 04/20/19 Range/Units 05:20 01:05 00:40 Last Dose Date 04/20/19 Last Dose Time 1800 Random Gentamicin 1.0 ug/mL Chlam trachomat DNA PCR NEGATIVE (NEGATIVE) N.gonorrhoeae DNA (PCR) NEGATIVE (NEGATIVE) Group B Strep (PCR) POSITIVE A (NEGATIVE) T. vaginalis (PCR) NEGATIVE (NEGATIVE) Assessment/Plan - Problem List (1) Vaginal delivery Impression: Has been afebrile since 18:00 on 04/20/19. -Cont abx until gentamicin dose at 18:00 and then discontinue unless febrile temps retrun -Influenza vaccine once afebrile for 24 hours -Chloroseptic for throat -Add oxycodone 5 mg po Q4H for breakthrough pain. Reviewed that narcotics should be used sparingly. Anticpate DC home tomorrow
[2019-04-21] MEDS: GENTAMICIN IV SCH (17:38)
[2019-04-21] MEDS: SODIUM CHLORIDE 0.9% IV SCH (17:38)
[2019-04-21] MEDS ORDERED: FLU VACC QS2019-20(6MOS UP)/PF 60 MCG/0.5 ML SYRINGE IM ONE (19:00)
[2019-04-22] MEDS: IBUPROFEN 600 MG TABLET PO SCH ×2 (04:10→07:50)
[2019-04-22] MEDS: ACETAMINOPHEN 500 MG TABLET PO SCH (06:32)
--- NOTE | 2019-04-22 09:58 | PROVIDER PROGRESS NOTE ---
Subjective - Prog Note Date Prog Note Date: 04/22/19 Prog Note Time: 09:56 - Subjective Subjective: Patient is doing very well today. She states her lochia is light. She is trying to breast-feed. It does appear that the may need to stay for mirta vated bilirubin. The patient would like to be discharged but to rooming in.She is ambulating well and tolerating diet well. She states her pain level is 0 today. Objective - Vital Signs/Intake & Output Vital Signs: Vital Signs x48h Temp Pulse Resp BP Pulse Ox 04/22/19 08:00 36.8 C 78 16 100 04/22/19 04:46 36.8 C 76 16 119/75 100 Intake & Output: Intake & Output 04/19/19 04/20/19 04/21/19 04/22/19 23:59 23:59 23:59 23:59 Intake Total 2366.25 1709 Output Total 2001 Balance 365.25 1709 - Lab Results Fish Bones: 04/20/19 01:05 04/20/19 01:05 - Other Results/Comments Other Results/Comments: Abdomen: The abdomen is soft, pliable and nontender. The uterus is firm and non tender 3 but fingerbreadths below the umbilicus. Episiotomy: The episiotomy is clean and dry and well approximated without any signs of infection. Assessment/Plan - Problem List (1) Vaginal delivery Impression: day #2-stable Plan: The patient will be discharged home with written verbal instructions. She will use Tylenol for pain control. She will call us if she has any problems.As long as she does well she will be seen in the office in 1 week and then follow- up in [address] Mcarthur.
--- NOTE | 2019-04-22 10:41 | DISCHARGE SUMMARY ---
Physician: Colton Adkins DO DATE OF ADMISSION: 04/20/2019 DATE OF DISCHARGE: 04/22/2019 ADMITTING DIAGNOSES 1. Intrauterine at 36 weeks 4 days gestation. 2. Premature rupture of membranes. DISCHARGE DIAGNOSES: Delivery at 36 weeks 4 days gestation. PROCEDURES 1. Spontaneous assisted vaginal delivery. 2. Episiotomy with episiorrhaphy. LABORATORIES: Revealed WBCs of 8.6, RBCs of 4.38, hemoglobin 12.7, hematocrit 36.5 with 196 platelet s. A chem screen was unremarkable. HOSPITAL COURSE: Patient had come to labor and delivery with complaint of leakage of fluid at home. She had a large gush, which she stated was clear. She went on to deliver a viable male and one is referred to the delivery note for full details. On her first day, she was ambulati ng well, tolerating diet well. She was voiding without difficulty. She was trying to breastfeed. He r IV was discontinued. On her second day, she continued to do quite well. Lochia was lig ht. Vital signs were stable. She was afebrile. The uterus was firm and nontender 3 fingerbreadths below the umbilicus. The episiotomy was clean and dry without any signs of infection. It was well-a pproximated. It was felt the patient was stable to be safely discharged to home. DISCHARGE INSTRUCTIONS Patient was discharged home with both written and verbal instructions, which included such things as 1. She is to forego any lifting, tampons, douching or intercourse. 2. She is to report any temperature greater than 100.4 or heavy vaginal bleeding. 3. She is not to drive a car for the next 2 weeks. 4. She is to continue to increase her fluids and continue her vitamins. 5. She may use Tylenol for pain control if she needs to. 6. She may take a tub bath or shower. 7. As long as she does well, she will be seen in the office in 1 week and then in 6 weeks for full p ostpartum visit. She will be seen by Dr. Mcarthur. TD: 04/22/2019 10:06
[2019-04-22 17:08] VITALS: BP 112/57
--- NOTE | 2019-04-22 17:12 | Labor Flowsheet ---
Labor Flowsheet Datetime Report Generated by CPN: 04/22/2019 17:12 Datetime: 04/22/2019 07:47 VITAL SIGNS NBP Sys/Bita/Mean (mmHg): 121 : 77 : 86 Pulse: 78 LaborFlag: Labor Datetime: 04/21/2019 16:10 SpO2 (%): 100 Datetime: 04/20/2019 13:39 Membranes Ruptured Date/Time: 04/19/2019 23:30 Datetime: 04/20/2019 12:08 Comments: mc oswald, posterior shoulder and rght side-interventions that were done to releave shou lder dystocia Datetime: 04/20/2019 12:07 Patient Position/Activity: Right Extreme Datetime: 04/20/2019 12:05 Stage 2 Comments: epistomy done by dr holbrook Datetime: 04/20/2019 12:03 Oxygen Amount (LPM): 10 Oxygen Method: Non-Rebreather Datetime: 04/20/2019 12:02 UTERINE ACTIVITY Monitor Mode: External Frequency (min): 2-3 Quality: Strong Duration (sec): 60-70 Pattern: Normal: <= 5 Contractions in 10 Minutes Resting Tone (Palpate): Relaxed ASSESSMENT A Monitor Mode: External US FHR Baseline Rate : 125 Variability: Moderate 6-25 bpm Accelerations: 15X15 Decelerations: Variable Category: Category II Datetime: 04/20/2019 11:51 Pushing Progress: Descent with Pushing Datetime: 04/20/2019 11:44 FHR Baseline Changes: No Baseline Change Datetime: 04/20/2019 11:04 Respirations: 18 Temperature (C): 36.8 Datetime: 04/20/2019 10:59 Monitor Interventions for FHR: Ultrasound Adjusted Datetime: 04/20/2019 10:51 MEDICATIONS Pitocin (milliunits): Increased to @ 7 Medication Comments: per dr mcsorley Datetime: 04/20/2019 10:05 COMMUNICATION Communication: Provider at Bedside Communication Comments: mcsorley Datetime: 04/20/2019 09:56 Anesthesia Comments: edin here to clear air from epidural pump Datetime: 04/20/2019 09:45 Actions for Decelerations: Side to Side Datetime: 04/20/2019 09:34 Vaginal Bleeding: Small Vaginal Exam Comments: with clot. pt pushing, dr mcsorley vaginal exam and applying gentle traction Datetime: 04/20/2019 08:59 Patient Care Comments: pt pushing on right side Datetime: 04/20/2019 08:27 VAGINAL EXAM Dilatation (cm): 10.0 Effacement (%): 100 Exam by: mcsorley STAGE 2 Pushing Position: Pushing with Contractions Datetime: 04/20/2019 08:25 PATIENT CARE IV/Blood Work: IV Bolus Started Datetime: 04/20/2019 08:03 Station: 1 Datetime: 04/20/2019 07:49 PAIN Pain Scale: 5 Pain Coping: Talking Through Contractions; Sleeping Pain Assessment Comments: pt states pain in lower back and feeling a lttle more pressure. pt pushed epidural button. wctm Datetime: 04/20/2019 07:00 Pitocin Checklist: At Least 1 Acceleration of 15 bpm x 15 Seconds in 30 Minutes or Adequate Variabi lity; Uterus Palpates Soft between Contractions Pain Presence: Intermittent Pain Type: Cramping Pain Location: Abdomen Pain Relief Measures: Comfort Measures Anesthesia Level Check: T10- Umbilicus Datetime: 04/20/2019 05:41 Stage of : Labor Cervix, Consistency: Soft Strip Reviewed by: Milagros Provider Notified (Name): Dr. Garsia Notification Reason: Labor Status Datetime: 04/20/2019 04:37 Cervix, Position: Midposition Datetime: 04/20/2019 03:59 Monitor Interventions for UA: [place] Adjusted Datetime: 04/20/2019 03:25 Hygiene: Heather Care I/O Interventions: Ramires Cath Inserted Datetime: 04/20/2019 02:10 Consults: Anesthesia Datetime: 04/20/2019 01:59 ANESTHESIA Anesthesia Plans: Epidural Epidural Procedure: Test Dose Datetime: 04/20/2019 01:43 PROCEDURE TIME OUT Procedure Verify: Correct Patient Identity; Correct Side and Site are Marked; Accurate Procedure Co nsent Form; Agreement on Procedure to be Done; Correct Patient Position; Relevant Images and Results are Properly Labeled and Displayed; Addressed Need to Administer Antibiotics or Fluids for Irrigation ; Safety Precautions Based on Patient History or Medication Use Epidural Positioning: Sitting Datetime: 04/20/2019 01:14 Pain Goal: 3 Membrane Status: Ruptured Membranes Rupture Method: Spontaneous Amniotic Fluid Color: Clear Amniotic Fluid Amount: Large Amniotic Fluid Odor: Normal MATERNAL ASSESSMENT Level of Consciousness: Fully Conscious DTR's/Clonus: DTRs 2+; No Clonus Headache: Denies Nausea/Vomiting: Denies RUQ Epigastric Pain: Denies Comfort Measures: Breathing/Relaxation; Family Support
--- NOTE | 2019-04-24 13:09 | CONSULTATION NOTE ---
Consultation Report: Call to see pt in [facility] observation room while she is here to have her baby seen. Pt c/o tingling sensation at L posterior buttocks that extends inferiorly to lateral ankle. No motor weakness observed, demonstrated by ambulation and balancing on L foot without difficulty. Full ankle ROM. Pt states labor was 3 hours and 40 mins of pushing in stirrups with effective epidural. Epidural placement was uneventful per pt and her , stating she had no pain with insertion. Explained to pt that the positioning is likely to be the cause of symptoms and that nerves can vary in the time required to return to baseline. As long as there continues to be no motor weakness, resume normal ADL's with no restriction in lower limb use if not painful. Pt was asked to update OBGYN at her next appointment 04/28. Will follow up with MD for ongoing assessment.
== END 2019-04-22 17:11 | disposition home or self-care (01) | DRG 806 ==
LOC: WFO 00:08 → FBP 00:09 → WFO 00:44 → FBP 00:45
PROVIDERS: ADMIT Obstetrics & Gynecology; ATTEND Obstetrics & Gynecology
PROC: 10E0XZZ Delivery of Products of Conception, External Approach (ICD-10-PCS; principal; 2019-04-20)
PROC: 0W8NXZZ Division of Female Perineum, External Approach (ICD-10-PCS; 2019-04-20)
DX: O42.013 Preterm premature rupture of membranes, onset of labor within 24 hours of rupture, third trimester (principal); O72.1 Other immediate postpartum hemorrhage; Z37.0 Single live birth; O75.2 Pyrexia during labor, not elsewhere classified; Z3A.36 36 weeks gestation of pregnancy; O99.344 Other mental disorders complicating childbirth; F32.9 Major depressive disorder, single episode, unspecified; R03.0 Elevated blood-pressure reading, without diagnosis of hypertension; O77.0 Labor and delivery complicated by meconium in amniotic fluid; O66.0 Obstructed labor due to shoulder dystocia; O64.0XX0 Obstructed labor due to incomplete rotation of fetal head, not applicable or unspecified; O76 Abnormality in fetal heart rate and rhythm complicating labor and delivery; O99.824 Streptococcus B carrier state complicating childbirth; O99.53 Diseases of the respiratory system complicating the puerperium; J02.9 Acute pharyngitis, unspecified; Z23 Encounter for immunization; Z79.899 Other long term (current) drug therapy; Z88.0 Allergy status to penicillin
CPT/HCPCS: 36415; 80076; 80170; 82565; 82570; 84156; 85025; 87491; 87591; 87661; 87797; 90686; 99213; A9270; J7120; 84112